=== PATIENT | male | born 1960 | race Caucasian/White ===

== ENCOUNTER 2018-11-22 06:54 | Day surgery (SDC) | payer OTHER ==
[2018-11-16 14:30] LABS: BASOPHIL % 0.2 % (0.0-0.2); EOSINOPHIL % 0.4 % (0.0-5.0); HEMOGLOBIN 16.3 g/dL (13.9-16.3); LYMPHOCYTES # 2.7 10^3/uL (1.0-4.8); LYMPHOCYTES % 32.1 % (24.0-44.0); MEAN CELL HGB 31.8 pg (26-34); MEAN CELL HGB CONCENTRATION 36.2 g/dL (33-37); MEAN CORP VOLUME 87.7 fL (78-100); MEAN PLATELET VOLUME 10.7 fL (7.8-11.0); MONOCYTES # 0.6 10^3/uL (0.3-0.8); MONOCYTES % 7.1 % (5.0-12.0); PLATELET COUNT 200 10^3/uL (150-400); RED CELL DISTRIBUTION WIDTH 13.2 % (11.5-14.5); WHITE BLOOD CELL 8.3 10^3/uL (4.5-11.0)
[2018-11-16 14:40] VITALS: BP 133/85
[2018-11-16 14:51] LABS: CALCIUM 8.9 mg/dL (8.4-10.5); CARBON DIOXIDE 25.4 mmol/L (20.0-32)
--- NOTE | 2018-11-16 14:54 | PCM.EKG ---
[facility] Test Date: 2018-11-16 Test Time: 14:53:01 Pat Name: SARAH FAJARDO Department: Room: Gender: M Director Internal Audit: PEGGY : 1960 Requested By: SARAH CROWELL Order Number: [id number] Reading MD: Jim Dsouza Measurements Intervals [place] Rate: 75 P: 68 SD: 210 QRS: 86 QRSD: 82 T: 47 QT: 370 QTc: 413 Interpretive Statements Sinus rhythm with 1st degree AV block Otherwise normal ECG No previous ECG available for comparison Electronically Signed On 11-21-2018 7:32:42 CDT by Jim Dsouza Please click the below link to view image of tracing.
[~2018-11-22] VITALS: Ht 177.8 cm; Wt 82.2 kg
[2018-11-22] VITALS (10 sets, daily range): BP systolic 97–138; BP diastolic 61–87
[~2018-11-22 06:54] MED LIST: LACTATED RINGERS 1,000 ML ONE; NS 3000ML IRR IR ONE; SODIUM CHLORIDE IR ONE; XYLOCAINE 2%-EPI 1:100,000 ONE
[2018-11-22] MEDS ORDERED: LACTATED RINGERS 1,000 ML IV SCH (07:00)
[2018-11-22] MEDS ORDERED: DECADRON ONE (07:47)
[2018-11-22] MEDS ORDERED: ZOFRAN ONE (07:47)
[2018-11-22] MEDS ORDERED: SUBLIMAZE ONE (07:48)
[2018-11-22] MEDS ORDERED: DIPRIVAN IV ONE (07:48)
[2018-11-22] MEDS ORDERED: TORADOL ONE (07:48)
[2018-11-22] MEDS ORDERED: LIDOCAINE 2% VIAL ONE (07:48)
[2018-11-22] MEDS ORDERED: LACTATED RINGERS 1,000 ML ONE (07:48)
[2018-11-22] MEDS ORDERED: REGLAN IV PRN (08:30)
[2018-11-22] MEDS ORDERED: SUBLIMAZE IV PRN (08:30)
[2018-11-22] MEDS ORDERED: DILAUDID IV PRN (08:30)
[2018-11-22] MEDS ORDERED: LACTATED RINGERS 1,000 ML SCH (08:30)
[2018-11-22] MEDS ORDERED: TRAM-47 PO (10:06)
--- NOTE | 2018-11-22 10:49 | OPH ---
DATE OF SURGERY: 11/22/2018 PREOPERATIVE DIAGNOSIS: Articular cartilage tear, left knee. POSTOPERATIVE DIAGNOSIS: Articular cartilage tear, left knee plus synovitis, left knee. OPERATIVE PROCEDURE: Arthroscopy of the left knee with: 1. Chondroplasty of the patellofemoral joint. 2. Synovectomy, left knee. SURGEON: Benson Small MD ANESTHESIA: LMA. TOURNIQUET TIME: None. BLOOD LOSS: 10 mL. DESCRIPTION OF INDICATION: The patient is a 58-year-old male, who injured his left knee going up and down some stairs on 07/26/2018 while at work. The patient denies any previous problems with the knee. Since then, the patient continues to complain of painful crepitation about the knee as well as popping that is painful. He is no better with physical therapy, cortisone injections, bracing or anti-inflammatories. His x-rays are negative. The MRI scan showed some articular cartilage damage about the patellofemoral joint, but otherwise his menisci and other ligaments are intact. Because of continued mechanical symptoms about the knee that are painful, the patient was taken to the operating room for arthroscopy. DESCRIPTION OF PROCEDURE: The patient was placed on the operating table in the supine position. An LMA anesthetic was induced without difficulty. The patient had the left thigh padded and a tourniquet was applied, but not inflated. The left lower extremity was then sterilely prepped and draped. The patient then had the arthroscopy portals made superolateral, anterolateral and anteromedial. The outflow was superolateral, the arthroscope was anterolateral, the probe was anteromedial. The patient then had the arthroscope introduced into the suprapatellar pouch. He had a significant amount of synovitis in the suprapatellar pouch as well as the medial gutter. A shaver was introduced and synovectomy was performed of the medial compartment as well as the suprapatellar pouch region. The patient had some articular cartilage damage, grade 2-3 about the central ridge of the patella as well as the central portion of the femoral sulcus. Later in the case, a shaver was introduced and any damaged articular cartilage was debrided back to stable edges using the shaver. The medial and lateral gutters were viewed. There were no arthritic changes. The medial compartment was entered. He had some inflammation of the synovium that was debrided with a shaver, but the menisci were normal. He had an area that was about 5 cm in diameter with some softening of the articular cartilage of the medial femoral condyle, but no loose pieces of articular cartilage. The tibial plateau was normal. His intercondylar notch was viewed. His anterior and posterior cruciate ligaments were normal. The knee was placed in the [id number]-ryxy position and the patient had the lateral compartment viewed. His lateral meniscus was normal and his lateral articular cartilage was normal proximally and distally. The arthroscopic equipment was removed from the knee. The portal tracts were closed with 3-0 Ethilon. A compressive dressing was applied and the patient was extubated in the operating room, sent to recovery in stable condition. Benson Small MD DR: LORENA/kerline JOB# [id number]
== END 2018-11-22 11:00 | disposition home or self-care (01) ==
LOC: SDC 06:54
PROVIDERS: ATTEND Orthopaedic Surgery
DX: S83.8X2A Sprain of other specified parts of left knee, initial encounter (principal); X58.XXXA Exposure to other specified factors, initial encounter; Y93.89 Activity, other specified; Y92.89 Other specified places as the place of occurrence of the external cause; Y99.8 Other external cause status; F17.220 Nicotine dependence, chewing tobacco, uncomplicated; M19.90 Unspecified osteoarthritis, unspecified site; E66.3 Overweight; Z68.26 Body mass index [BMI] 26.0-26.9, adult; Z98.890 Other specified postprocedural states; Z88.0 Allergy status to penicillin; Z72.89 Other problems related to lifestyle; Z90.49 Acquired absence of other specified parts of digestive tract; Z79.899 Other long term (current) drug therapy; Z98.52 Vasectomy status; Z83.3 Family history of diabetes mellitus; Z82.49 Family history of ischemic heart disease and other diseases of the circulatory system
CPT/HCPCS: 29876; 36415; 80053; 85025; 93005; A4217 ×2; A4649 ×3; J1100; J1885; J2001; J2405; J3010; J3490; J7120 ×2

== ENCOUNTER → 2021-10-14 | Outpatient (CLI) | payer OTHER ==
[~2021-10-14] MED LIST changes: -LACTATED RINGERS 1,000 ML ONE; -NS 3000ML IRR IR ONE; -SODIUM CHLORIDE IR ONE; +TRAM-47 PO; -XYLOCAINE 2%-EPI 1:100,000 ONE
--- NOTE | 2021-10-14 17:23 | DIREP ---
PROCEDURE:XR SPINE CERVICAL 2 OR 3 VIEWS COMPARISON:None. INDICATIONS:NECK PAIN TECHNIQUE:AP, lateral, and dens views of the cervical spine are provided. FINDINGS: ALIGNMENT:Normal. VERTEBRAE:Normal vertebral height. Minimal anterior osteophyte formation. Mild facet arthrosis. DISK SPACES:Normal. CERVICAL RIBS:None. OTHER:Normal. CONCLUSION:Mild degenerative changes without acute bony abnormality. Dictated by: Jak Rodriguez M.D. on 10/14/2021 at 05:21 PM
--- NOTE | 2021-10-14 17:25 | DIREP ---
PROCEDURE:XRAY SPINE LUMBAR 2-3 VWS COMPARISON:None. INDICATIONS:LOW BACK PAIN TECHNIQUE:AP, lateral, and coned down lateral views of the lumbar spine are provided. FINDINGS: ALIGNMENT:Normal. VERTEBRAE:Normal vertebral height. Mild anterior and lateral osteophyte formation. DISK SPACES:Normal. SPONDYLOLISTHESIS:None. SACROILIAC JOINTS:Normal. OTHER:Surgical mesh in the anterior abdomen. CONCLUSION:Mild degenerative changes without acute bony abnormality. Dictated by: Jak Rodriguez M.D. on 10/14/2021 at 05:22 PM
== END | disposition home or self-care (01) ==
LOC: RAD 16:31
PROVIDERS: ATTEND Chiropractor
DX: M47.812 Spondylosis without myelopathy or radiculopathy, cervical region (principal); M47.816 Spondylosis without myelopathy or radiculopathy, lumbar region; M54.2 Cervicalgia; M54.50 Low back pain, unspecified
CPT/HCPCS: 72040; 72100

== ENCOUNTER → 2022-08-22 | Outpatient (CLI) | payer OTHER ==
[~2022-08-22] MED LIST changes: +APIX5TAB PO; +BUPR100T7 PO; +CHOL4POW4 PO; +KETO10TA PO
[2022-08-22 14:52] LABS: BASOPHIL # 0.1 10^3/uL (0.0-0.1); BASOPHIL % 0.7 % (0.0-0.2); EOSINOPHIL # 0.2 10^3/uL (0.0-0.2); EOSINOPHIL % 3.2 % (0.0-5.0); LYMPHOCYTES # 2.26 10^3/uL1 (1.0-4.8); LYMPHOCYTES % 32.6 % (24.0-44.0); MEAN CORP HGB 31.5 pg (26-34); MONOCYTES # 0.6 10^3/uL (0.3-0.8); MONOCYTES % 8.2 % (5.0-12.0); NEUTROPHIL # 3.8 10^3/uL (1.8-7.7); NEUTROPHILS % 55.2 % (41.0-85.0); PLATELET COUNT 228 10^3/uL (150-400); RED CELL DISTRIBUTION WIDTH 12.3 % (11.5-14.5)
[2022-08-22 15:20] LABS: CARBON DIOXIDE 24.9 mmol/L (20.0-32)
== END | disposition home or self-care (01) ==
LOC: LAB 14:29
PROVIDERS: ATTEND Nurse Practitioner Family
DX: Z00.00 Encounter for general adult medical examination without abnormal findings (principal); Z12.5 Encounter for screening for malignant neoplasm of prostate; E78.2 Mixed hyperlipidemia; Z86.711 Personal history of pulmonary embolism
CPT/HCPCS: 36415; 80053; 80061; 84153; 84439; 84443; 85025

== ENCOUNTER → 2022-09-03 | Outpatient (CLI) | payer OTHER | END | disposition home or self-care (01) | LOC: LAB 11:49 | PROVIDERS: ATTEND Nurse Practitioner Family | DX: Z86.711 Personal history of pulmonary embolism (principal) | CPT/HCPCS: 36415; 85379 ==

== ENCOUNTER → 2023-01-07 | Outpatient (CLI) | payer SELFPAY ==
[2023-01-07 10:00] LABS: BASOPHIL # 0.1 10^3/uL (0.0-0.1); BASOPHIL % 0.8 % (0.0-0.2); EOSINOPHIL # 0.2 10^3/uL (0.0-0.2); EOSINOPHIL % 2.2 % (0.0-5.0); LYMPHOCYTES # 2.68 10^3/uL1 (1.0-4.8); LYMPHOCYTES % 34.6 % (24.0-44.0); MEAN CORP HGB 31.4 pg (26-34); MONOCYTES # 0.7 10^3/uL (0.3-0.8); MONOCYTES % 9.2 % (5.0-12.0); NEUTROPHIL # 4.1 10^3/uL (1.8-7.7); NEUTROPHILS % 52.8 % (41.0-85.0); RED CELL DISTRIBUTION WIDTH 12.3 % (11.5-14.5)
[2023-01-07 10:21] LABS: CARBON DIOXIDE 26.4 mmol/L (20.0-32)
== END | disposition home or self-care (01) ==
LOC: LAB 09:41
PROVIDERS: ATTEND Nurse Practitioner Family
DX: M54.50 Low back pain, unspecified (principal)
CPT/HCPCS: 36415; 80053; 85025; 85379

== ENCOUNTER → 2024-07-21 | Outpatient (CLI) | payer BC ==
[2024-07-21 12:52] LABS: BASOPHIL % 0.5 % (0.2-1.2); EOSINOPHIL # 0.1 10^3/uL (0.0-0.2); EOSINOPHIL % 1.6 % (0.0-5.0); HEMOGLOBIN 16.6 g/dL (13.9-16.3); LYMPHOCYTES # 2.11 10^3/uL1 (1.0-4.8); LYMPHOCYTES % 27.8 % (24.0-44.0); MEAN CORP HGB 31.3 pg (26-34); MEAN CORP HGB CONCENTRATION 35.3 g/dL (33-36.5); MEAN CORP VOLUME 88.5 fL (78-100); MONOCYTES # 0.5 10^3/uL (0.3-0.8); MONOCYTES % 6.9 % (5.0-12.0); NEUTROPHIL # 4.8 10^3/uL (1.8-7.7); NEUTROPHILS % 62.7 % (41.0-85.0); PLATELET COUNT 223 10^3/uL (150-400); RED BLOOD CELL 5.31 10^6/uL (4.50-5.90); RED CELL DISTRIBUTION WIDTH 12.2 % (11.5-14.5); WHITE BLOOD CELL 7.6 10^3/uL (4.5-11.0)
[2024-07-21 12:55] LABS: +ADD MANUAL DIFF(NO CHRG) NO
[2024-07-21 13:20] LABS: CREATINE KINASE 115 U/L (39-308); CREATINE KINASE MB 0.6 ng/mL (0.5-3.6); TROPONIN I HIGH SENSITIVITY < 4 ng/L (0-75)
[2024-07-21 14:11] LABS: ALANINE AMINOTRANSFERASE(ML) 33 U/L (12-78); ALBUMIN(ML) 3.6 g/dL (3.4-5.0); ALBUMIN/GLOBULIN RATIO 1.058; ALKALINE PHOSPHATASE 78 U/L (50-136); ANION GAP 17.7; ASPARTATE AMINO TRANSFERASE 27 U/L (0-35); CALCIUM 8.6 mg/dL (8.4-10.5); CARBON DIOXIDE 20.6 mmol/L (20.0-32); CREATININE SERUM 1.11 mg/dL (0.59-1.40); EST GFR, NON-AA 66.7 (>/=60); GLUCOSE 108 mg/dL (74-106); POTASSIUM 4.3 mmol/L (3.6-5.2); SODIUM 140 mmol/L (132-145)
== END | disposition home or self-care (01) ==
LOC: RAD 12:07
PROVIDERS: ATTEND Nurse Practitioner Family
DX: R07.89 Other chest pain (principal); R06.02 Shortness of breath; R53.82 Chronic fatigue, unspecified; Z86.711 Personal history of pulmonary embolism
CPT/HCPCS: 36415; 71046; 80053; 82550; 82553; 83880; 84484; 85025; 85379; 93005